=== PATIENT | male | born 1975 | race Caucasian/White ===

== ENCOUNTER 2020-08-21 19:33 | Emergency (ER) | payer MEDICAID ==
[~2020-08-21] VITALS: Ht 185.4 cm; Wt 81.6 kg
[2020-08-21 19:40] VITALS: BP_SYST 124
[2020-08-21] MEDS: KETOROLAC TROMETHAMINE 30 MG VIAL IM ONE (20:48)
[2020-08-21] MEDS ORDERED: IBUP-1969 PO (21:40)
[2020-08-21 21:50] VITALS: BP_SYST 124
== END 2020-08-21 21:50 | disposition home or self-care (01) ==
LOC: SED 19:33
DX: S43.492A Other sprain of left shoulder joint, initial encounter (principal); Y08.89XA Assault by other specified means, initial encounter; Y93.89 Activity, other specified; Y92.89 Other specified places as the place of occurrence of the external cause; Y99.8 Other external cause status
CPT/HCPCS: 73030; 96372; 99283; J1885